=== PATIENT | female | born 1940 | race Caucasian/White ===

== ENCOUNTER 2018-05-22 06:22 | Day surgery (SDC) | payer OTHER ==
[~2018-05-22] VITALS: Ht 149.9 cm; Wt 72.0 kg
[~2018-05-22 06:22] MED LIST: ALBU8HFA IH; ASPI81 PO; BECL10.62 IH; LOSA50TA64 PO; METF-960 PO; METO25 PO; PRED10 PO; RANI150T7 PO; SODIUM CHLORIDE 0.9% 1,000 ML IV ONE; VITAD1000 PO
[2018-05-22] MEDS ORDERED: EPINEPHrine 1:1,000 [1 MG/ML] AMP IM ONE (06:23)
[2018-05-22] MEDS ORDERED: ALBUTEROL SULFATE 2.5 MG/0.5 ML NEB SOLUTION NEB ONE (06:23)
[2018-05-22] MEDS ORDERED: BENZOCAINE 20% 50 MCG/SPRAY 57 GM TP ONE (06:23)
[2018-05-22] MEDS ORDERED: LIDOCAINE 2% 5 ML JELLY TP ONE (06:23)
[2018-05-22] MEDS ORDERED: LIDOCAINE 4% 50 ML SOLUTION TP ONE (06:23)
[2018-05-22] MEDS ORDERED: SODIUM CHLORIDE 0.9% 1,000 ML IV ONE (06:30)
[2018-05-22 07:39] LABS: GLUCOMETER DEV NAME(LOC) SDS.; GLUCOSE,POINT OF CARE 132 MG/DL (70-110)
[2018-05-22] MEDS ORDERED: FentaNYL CITRATE-PF 100 MCG/2 ML VIAL ONE (07:42)
[2018-05-22] MEDS ORDERED: MIDAZOLAM HCL 2 MG/2 ML VIAL ONE (07:42)
[2018-05-22] MEDS ORDERED: MethylPREDNISolone SOD SUCC 125 MG/2 ML VIAL IVP ONE (08:45)
[2018-05-22] MEDS ORDERED: MethylPREDNISolone SOD SUCC 125 MG/2 ML VIAL ONE (08:55)
[2018-05-22] MEDS ORDERED: MethylPREDNISolone SOD SUCC 40 MG/ML VIAL IVP ONE (09:15)
[2018-05-22] MEDS ORDERED: OXYGEN THERAPY IH SCH (20:00)
== END 2018-05-22 12:15 | disposition home or self-care (01) ==
LOC: SURGERY 06:22
PROVIDERS: ATTEND Internal Medicine Critical Care Medicine
DX: J38.4 Edema of larynx (principal); B37.0 Candidal stomatitis; J98.09 Other diseases of bronchus, not elsewhere classified; J98.8 Other specified respiratory disorders; I10 Essential (primary) hypertension; E11.9 Type 2 diabetes mellitus without complications; I70.8 Atherosclerosis of other arteries; J84.10 Pulmonary fibrosis, unspecified; K21.9 Gastro-esophageal reflux disease without esophagitis; Z90.89 Acquired absence of other organs; Z98.41 Cataract extraction status, right eye; Z98.42 Cataract extraction status, left eye; Z87.891 Personal history of nicotine dependence; Z87.01 Personal history of pneumonia (recurrent); Z79.84 Long term (current) use of oral hypoglycemic drugs; Z79.82 Long term (current) use of aspirin; Z79.899 Other long term (current) drug therapy
CPT/HCPCS: 31623; 31624; 71045; 82962; 87015; 87070; 87101; 87206; 87220; 88108; 88312; J0171; J2250; J2930; J3010; J7030